=== PATIENT | female | born 1985 | race Hispanic/Latino ===

== ENCOUNTER 2018-05-25 19:25 | Emergency (ER) | payer BC ==
[~2018-05-25] VITALS: Ht 149.9 cm; Wt 69.4 kg
[~2018-05-25 19:25] MED LIST: AMOXICILLIN500 MG PO; AMPICILLIN500 MG PO; CEFEPIME; FERR SULFATE325 MG OR; FLAGYL500 MG OR; HYDROCO/APAP1 T10 PO; IBUPROFEN600 MG PO; LORTAB 7.57.5 MG PO; NAPROSYN500 MG PO; NORCO1 TA2 PO; PRE-NATAL; PRENATAL1 TA1 PO; TYLENOL325 MG PO; ULTRAM50 MG OR
[2018-05-25] MEDS ORDERED: ZPAK PO (19:57)
[2018-05-25] MEDS ORDERED: SUDAFED 12HR120 MG PO (20:08)
[2018-05-25] MEDS ORDERED: TRAMADOL HCL50 MG PO (20:08)
[2018-05-25] MEDS ORDERED: MOTRIN800 MG PO (20:08)
[2018-05-25 20:40] VITALS: BP 120/87
== END 2018-05-25 20:40 | disposition home or self-care (01) | DRG 153 ==
LOC: ED 19:25
DX: H65.92 Unspecified nonsuppurative otitis media, left ear (principal); H92.02 Otalgia, left ear; J34.89 Other specified disorders of nose and nasal sinuses; R09.81 Nasal congestion

== ENCOUNTER 2020-08-07 13:18 | Emergency (ER) | payer BC ==
[~2020-08-07] VITALS: Ht 149.9 cm; Wt 73.0 kg
[~2020-08-07 13:18] MED LIST changes: +MOTRIN800 MG PO; +SUDAFED 12HR120 MG PO; +TRAMADOL HCL50 MG PO; +ZPAK PO
[2020-08-07 14:08] LABS: IMMATURE GRANULOCYTES 0.3 % (0.0-5.0); MEAN CELL VOLUME 81.3 fL CALC (80.0-100.0); MEAN CORPUSCULAR HGB 27.5 pG CALC (26.0-32.0); MEAN CORPUSCULAR HGB CONC 33.8 g/dL CAL (32.0-36.0); NEUT# 3.74 thou/uL (2.00-7.15); RED BLOOD COUNT 4.98 mill/uL (4.20-5.60); RED CELL DISTRI WIDTH 12.2 % (11.5-15.5)
[2020-08-07 14:10] LABS: HEMATOCRIT 40.5 % (37.0-47.0); HEMOGLOBIN 13.7 g/dl (12.0-16.0)
[2020-08-07 14:19] LABS: ALBUMIN 4.5 g/dL (3.2-5.0); ALKALINE PHOSPHATASE 93 u/l (38-126); ANION GAP 14 (6-22 (CALC)); BILIRUBIN, TOTAL 0.5 mg/dL (0.0-1.4); BUN 12 mg/dL (7-17); BUN/CREATININE RATIO 19 (12-20 (CALC)); CARBON DIOXIDE 20 mmol/l (22-30); CHLORIDE 105 mmol/l (95-108); CREATININE 0.6 mg/dL (0.5-1.0); GFR > 60 ML/MIN (>=60 (CALC)); GFR FOR AFR.AMER. > 60 ML/MIN (>=60 (CALC)); POTASSIUM 4.4 mmol/l (3.5-5.1); SGOT/AST 86 u/l (14-36); SODIUM 135 mmol/l (137-146); TOTAL PROTEIN 7.7 g/dL (6.3-8.2)
[2020-08-07 15:35] LABS: URINE BILIRUBIN - DIPSTICK NEGATIVE (NEGATIVE); URINE BLOOD DIPSTICK NEGATIVE (NEGATIVE); URINE COLOR YELLOW; URINE GLUCOSE - DIPSTICK NEGATIVE (NEGATIVE); URINE KETONE NEGATIVE (NEGATIVE); URINE LEUK ESTERASE NEGATIVE (NEGATIVE); URINE NITRITE - DIPSTICK NEGATIVE (Negative); URINE PROTEIN - DIPSTICK NEGATIVE (NEG-TRACE); URINE SPECIFIC GRAVITY <=1.005; URINE UROBILINOGEN - DIPSTICK 0.2 E.U./dL (0.2)
[2020-08-07] MEDS ORDERED: FLEXERIL5 MG PO (15:40)
[2020-08-07] MEDS ORDERED: ULTRAM50 MG PO (15:40)
[2020-08-07] MEDS ORDERED: MEDDOSEPAK PO (15:40)
[2020-08-07 15:45] VITALS: BP 118/68
== END 2020-08-07 16:11 | disposition home or self-care (01) | DRG 552 ==
LOC: ED 13:18
DX: M54.41 Lumbago with sciatica, right side (principal); Z85.3 Personal history of malignant neoplasm of breast; Z90.13 Acquired absence of bilateral breasts and nipples; Z90.710 Acquired absence of both cervix and uterus

== ENCOUNTER 2021-11-17 10:24 | Emergency (ER) | payer BC ==
[2021-11-17] VITALS (10 sets, daily range): BP systolic 106–134; BP diastolic 66–84
[~2021-11-17] VITALS: Ht 149.9 cm; Wt 72.0 kg
[~2021-11-17 10:24] MED LIST changes: +FLEXERIL5 MG PO; +MEDDOSEPAK PO; +ULTRAM50 MG PO
== END 2021-11-17 14:58 | disposition home or self-care (01) | DRG 103 ==
LOC: ED 10:24
DX: R51.9 Headache, unspecified (principal); R52 Pain, unspecified; Z20.822 Contact with and (suspected) exposure to COVID-19